=== PATIENT | male | born 1975 | race Hispanic/Latino ===

== ENCOUNTER 2017-04-08 17:37 | Emergency (ER) | payer BC ==
[~2017-04-08] VITALS: Ht 175.3 cm; Wt 134.0 kg
[~2017-04-08 17:37] MED LIST: NAPROSYN500 MG PO
[2017-04-08] MEDS ORDERED: METFORMIN500 MG PO (18:43)
[2017-04-08] MEDS ORDERED: TRULICITY0.75 MG/0. (18:44)
[2017-04-08 19:04] LABS: HEMATOCRIT 43.2 % (39.0-50.0); HEMOGLOBIN 15.3 g/dl (14.0-18.0); IMMATURE GRANULOCYTES 1.1 % (0.0-1.0); MEAN CELL VOLUME 80.4 fL CALC (80.0-100.0); MEAN CORPUSCULAR HGB 28.5 pG CALC (26.0-32.0); MEAN CORPUSCULAR HGB CONC 35.4 g/L CALC (32.0-36.0); NEUT# 3.74 thou/uL (1.82-7.42); RED BLOOD COUNT 5.37 mill/uL (4.70-6.10)
[2017-04-08 19:34] LABS: ALBUMIN 3.9 g/dL (3.2-5.0); ALKALINE PHOSPHATASE 108 u/l (38-126); ANION GAP 17 (6-22 (CALC)); BILIRUBIN, TOTAL 0.6 mg/dL (0.0-1.4); BUN 13 mg/dL (9-20); BUN/CREATININE RATIO 14 (12-20 (CALC)); CALCIUM 9.7 mg/dL (8.4-10.2); CARBON DIOXIDE 23 mmol/l (22-30); CHLORIDE 99 mmol/l (95-108); GFR > 60 ML/MIN (>=60 (CALC)); GFR FOR AFR.AMER. > 60 ML/MIN (>=60 (CALC)); GLUCOSE 406 mg/dL (75-110); POTASSIUM 4.2 mmol/l (3.5-5.1); SGOT/AST 47 u/l (17-59); SGPT/ALT 102 u/l (21-72); SODIUM 135 mmol/l (137-146); TOTAL PROTEIN 6.8 g/dL (6.3-8.2)
[2017-04-08] MEDS ORDERED: JANUVIA100 MG PO (20:36)
[2017-04-08] MEDS ORDERED: GLIPIZIDE5 M2 PO (20:36)
[2017-04-08 20:50] VITALS: BP 132/77
== END 2017-04-08 20:57 | disposition home or self-care (01) | DRG 639 ==
LOC: ED 17:37
PROVIDERS: Emergency Medicine
DX: E11.65 Type 2 diabetes mellitus with hyperglycemia (principal); H53.8 Other visual disturbances; Z79.84 Long term (current) use of oral hypoglycemic drugs; R53.1 Weakness